=== PATIENT | female | born 1955 | race Caucasian/White ===

== ENCOUNTER 2016-09-12 00:50 | Emergency (ER) | payer MEDICARE ==
[2013-07-05 15:30] VITALS: BMI 40.5
[~2016-09-12 00:50] MED LIST: BOUDREAUXS113 GM TP; COUMADIN5 MG PO; MS CONTIN15 MG PO; MULTI-DAY VITAM1 TAB PO; NORCO 10/325 TA1 TA1 PO; NORVASC10 MG PO; PERCOCET 10/3251 TA1 PO
[2016-09-12 01:32] LABS: BASOPHILS 0.1 % (0.0-2.0); EOSINOPHILS 0.9 % (0-7); HEMATOCRIT 40.7 % (36.0-48.0); HEMOGLOBIN 13.9 g/dL (12-16); IMMATURE GRANULOCYTES 0.2 % (0-5); LYMPHOCYTES 21.7 % (15-50); MCH 30.5 pg (26.0-34.0); MCHC 34.2 g/dL (31.0-37.0); MCV 89.5 fL (80.0-100.0); MEAN PLATELET VOLUME 12.7 fL (7.4-10.4); MONOCYTES 9.1 % (2-11); PLATELET COUNT 158 10x3/uL (130-400); RBC 4.55 10x6/uL (4.00-5.40); RDW 12.4 % (11.5-14.5); WBC 11.9 10x3/uL (4.8-10.8)
[2016-09-12 01:53] LABS: ALBUMIN 3.8 g/dL (3.4-5.0); ALKALINE PHOSPHATASE 96 U/L (46-116); ALT (SGPT) 66 U/L (10-68); BILIRUBIN - TOTAL 0.37 mg/dL (0.2-1.3); CALC OSMOLALITY 281 mosm/kg (275-300); CALCIUM 8.6 mg/dL (8.5-10.1); CHLORIDE - SERUM 103 mmol/L (98-107); CREATININE - SERUM 0.9 mg/dL (0.6-1.3); POTASSIUM - SERUM 3.9 mmol/L (3.5-5.1); PROTEIN - SERUM 7.1 g/dL (6.4-8.2); SODIUM 139 mmol/L (136-145); UREA NITROGEN 14 mg/dL (7-18); eGFR NON AFRICAN AMERICAN 67 mL/min (90-120)
[2016-09-12 01:54] LABS: GLUCOSE 159 mg/dL (74-106)
[2016-09-12 01:58] LABS: TROPONIN-I < 0.017 ng/mL (0.000-0.060)
== END 2016-09-12 02:09 | disposition home or self-care (01) ==
LOC: D.ER 00:50
PROVIDERS: Emergency Medicine
DX: I10 Essential (primary) hypertension (principal); I51.89 Other ill-defined heart diseases; Z91.14 Patient's other noncompliance with medication regimen; R00.0 Tachycardia, unspecified; I44.7 Left bundle-branch block, unspecified